=== PATIENT | male | born 1970 | race Caucasian/White ===

== ENCOUNTER 2023-06-15 10:16 | Outpatient (CLI) | payer BC, SELFPAY ==
--- NOTE | ~2023-06-15 | XR_ITS ---
XR lumbar spine 2-3V DATE: 06/15/2023 10:42 INDICATION: Low back pain TECHNIQUE: AP, lateral, coned lateral lumbosacral standing views COMPARISON: None FINDINGS: Normal alignment of the lumbar spine. No fracture or bone destruction or spondylolisthesis. There is mild to moderate degenerative disc disease of the lumbar spine, most prominent at L5-S1. The lumbar pedicles are intact. The sacral iliac joints are unremarkable. IMPRESSION: Moderate degenerative change Reviewed, dictated and finalized at location A.
--- NOTE | ~2023-06-15 | XR_ITS ---
XR pelvis 1-2V DATE: 06/15/2023 10:42 INDICATION: Bilateral sacroiliac pain TECHNIQUE: AP standing views COMPARISON: None FINDINGS: Normal alignment at the pubic symphysis and sacroiliac joints. No erosive change or ankylos is of the sacroiliac joints. No pelvic fracture or bone destruction. Joint spaces are relatively pres erved. There is mild bilateral hip osteoarthritis. IMPRESSION: Mild bilateral hip osteoarthritis Reviewed, dictated and finalized at location A.
--- NOTE | ~2023-06-15 | XR_ITS ---
XR thoracic spine 2V DATE: 06/15/2023 10:42 INDICATION: Mid back pain TECHNIQUE: AP, lateral, swimmer views COMPARISON: None FINDINGS: No fracture or dislocation. The thoracic pedicles are intact. No paraspinal soft tissue t hickening. Moderate degenerative spurring of the lower thoracic spine IMPRESSION: Degenerative change Reviewed, dictated and finalized at location A. IMPRESSION: Degenerative change
--- NOTE | ~2023-06-15 | XR_ITS ---
XR_CERV2-3V_CR DATE: 06/15/2023 10:42 INDICATION: Neck pain TECHNIQUE: AP, open-mouth, lateral views COMPARISON: None FINDINGS: There is normal alignment of the cervical spine. There is mild to moderate degenerative disc disease throughout the cervical spine, most prominent at C6-7. C1 and C2 are normally aligned and the odontoid process is intact. No fracture or dislocation or loc ked facet or prevertebral soft tissue swelling. IMPRESSION: Moderate cervical spondylosis Reviewed, dictated and finalized at Location A. Reviewed, dictated and finalized at location A.
== END 2023-06-15 10:17 ==
LOC: MICIMG 10:18
PROVIDERS: PCP Family Medicine; Visit Provider Chiropractor
DX: M47.896 Other spondylosis, lumbar region (principal); M47.894 Other spondylosis, thoracic region; M43.02 Spondylolysis, cervical region; M16.0 Bilateral primary osteoarthritis of hip
CPT/HCPCS: 72040; 72070; 72100; 72170